=== PATIENT | female | born 1960 | race Caucasian/White ===

== ENCOUNTER → 2017-02-10 | Outpatient (CLI) | payer OTHER ==
[~2017-02-10] MED LIST: CPR500T PO
--- NOTE | 2017-02-10 09:11 | Diagnostic Imaging Report ---
EXAMINATION: Bilateral diagnostic mammogram with a Computer Aided Detection (CAD) system. INDICATION: Palpable lump in the axillary region on the right side. COMPARISON: 12/18/2014. FINDINGS: The breasts are composed of scattered fibroglandular densities. A benign appearing subcentimeter nodule in the upper outer aspect of the left breast is seen. There is no mass, architectural distortion, or suspicious cluster of calcifications. IMPRESSION: No mammographic evidence of malignancy. An ultrasound evaluation is pending. ACR BI-RADS Category 0: Incomplete. (Needs additional imaging evaluation). Result letter will be mailed to the patient. Note: At least 10% of breast cancer is not imaged by mammography. Dictated by: Dictated on workstation # [id number]
--- NOTE | 2017-02-10 09:14 | Diagnostic Imaging Report ---
EXAMINATION: Right breast ultrasound. INDICATION: Lump in the axillary tail of the right breast. FINDINGS: There is unremarkable parenchyma with no underlying lesion seen. IMPRESSION: Negative study. Clinical followup of the palpable area is recommended. ACR BI-RADS Category 1: Negative. Dictated by: Dictated on workstation # [id number]
== END ==
LOC: RAD 07:41
PROVIDERS: ATTEND Family Medicine
DX: N63.31 Unspecified lump in axillary tail of the right breast (principal)
CPT/HCPCS: 77066

== ENCOUNTER → 2020-04-08 | Outpatient (CLI) | payer SELFPAY ==
--- NOTE | 2020-04-08 15:32 | Diagnostic Imaging Report ---
CT CHEST SCREENING WO TECHNIQUE: Low-dose unenhanced CT of the chest was performed according to the screening protocol. Coronal MIP and sagittal MPR reformats are created. Automatic exposure controls were utilized to keep dose as low as reasonably achievable. INDICATION: 55-oyxs-kngd history of smoking. Current smoker. COMPARISON: None available. FINDINGS: Pulmonary findings: No endoluminal nodule within the trachea. No pulmonary mass or consolidation. No bronchiectasis or pulmonary fibrosis. No pulmonary nodules that would be suspicious for clinically active lung cancer. Extrapulmonary findings: Probable left thyroid nodule. No axillary lymphadenopathy. No mediastinal or juxtaphrenic lymphadenopathy. Heart is normal in size. No pericardial effusion. No calcified plaques within the coronary arteries. Potential hepatic steatosis. No pleural effusion. IMPRESSION: 1. Baseline screening examination is negative for features of clinically active lung cancer. Recommend continued annual screening with low-dose CT chest in 12 months. 2. Probable left thyroid nodule. Dedicated thyroid ultrasound is recommended for further characterization. Lung-RADS category: 1S - Negative Dictated by: Dictated on workstation # [id number]
== END ==
LOC: RAD 13:02
PROVIDERS: ATTEND Nurse Practitioner Family
DX: Z72.0 Tobacco use (principal)

== ENCOUNTER → 2020-06-05 | Outpatient (CLI) | payer SELFPAY ==
[~2020-06-05] VITALS: Ht 162.6 cm; Wt 65.9 kg
[~2020-06-05] MED LIST changes: +LIDOCAINE 1% INJ 20 ML 20 ML VIAL INJ ONE; +LIDOCAINE 1% INJ 20 ML 20 ML VIAL ONE
--- NOTE | 2020-06-05 13:43 | Diagnostic Imaging Report ---
INDICATION: Left thyroid nodule. Patient presents for ultrasound-guided fine-needle aspiration biopsy. Patient brought to the procedure and placed on table in the supine position. Ultrasound imaging of the left neck was performed to evaluate appropriate entry site. Left neck was then prepped and draped in usual sterile fashion. Small amount of one percent lidocaine was utilized for local anesthesia. A total of 4 passes were made into the dominant solid nodule left lobe of the thyroid utilizing 25-gauge needles and fine needle aspiration technique. A single pass was made with a Rotex needle and a Rotex biopsy was performed. [place] were withdrawn and hemostasis was obtained using manual compression. Patient tolerated well and left the department in stable condition. IMPRESSION: Successful ultrasound-guided fine-needle aspiration and Rotex biopsy of the dominant left lobe thyroid nodule. Pathology results are currently pending. Dictated by: Dictated on workstation # [id number]
== END ==
LOC: RAD 13:00
PROVIDERS: ATTEND Nurse Practitioner Family
DX: E04.1 Nontoxic single thyroid nodule (principal)
CPT/HCPCS: 10005

== ENCOUNTER → 2022-01-05 | Outpatient (CLI) | payer OTHER ==
[~2022-01-05] MED LIST changes: -LIDOCAINE 1% INJ 20 ML 20 ML VIAL INJ ONE; -LIDOCAINE 1% INJ 20 ML 20 ML VIAL ONE; +LIDOCAINE 1% INJ 50 ML (XYLOCAINE) VIAL IJ ONE
--- NOTE | 2022-01-05 18:59 | Diagnostic Imaging Report ---
PROCEDURE: US Thyroid. TECHNIQUE: Multiple real-time grayscale images were obtained of the thyroid in various projections. INDICATION: Thyroid nodule. COMPARISON: 10/28/2021. FINDINGS: The right lobe of the thyroid gland measures 4.5 x 1.3 x 1.3 cm. A 0.4 x 0.3 cm solid-appearing hypoechoic nodule with circumscribed margins, which is wider than tall, is seen within the mid right thyroid lobe, not significantly changed since prior examination. No new right thyroid nodules. The left lobe of the thyroid gland measures 5.5 x 2.4 x 2.1 cm. A 4.0 x 2.6 x 1.7 cm solid isoechoic nodule is present within the left thyroid gland with circumscribed margins. This has not significantly changed since the prior examination. No new left thyroid nodules. The isthmus is unremarkable. IMPRESSION: 4 cm TI-RADS 3 nodule within the left thyroid lobe. Recommend fine-needle aspiration if this has not artifact been performed. No new thyroid nodules. Dictated on workstation # [id number]
== END ==
LOC: RAD 14:28
PROVIDERS: ATTEND Nurse Practitioner
DX: E04.1 Nontoxic single thyroid nodule (principal)
CPT/HCPCS: 76536